=== PATIENT | female | born 1940 ===

== ENCOUNTER 2023-07-12 13:19 | Outpatient (CLI) | payer MEDICARE | END 2023-07-12 13:20 | disposition home or self-care (01) | LOC: RAD 13:19 | PROVIDERS: ATTEND Family Medicine | DX: M43.6 Torticollis (principal); M47.812 Spondylosis without myelopathy or radiculopathy, cervical region | CPT/HCPCS: 72040 ==

== ENCOUNTER 2025-02-19 11:02 | Outpatient (CLI) | payer MEDICARE, OTHER | END 2025-02-19 11:03 | disposition home or self-care (01) | LOC: RAD 11:02 | PROVIDERS: ATTEND Nurse Practitioner Family | DX: R00.0 Tachycardia, unspecified (principal); R16.0 Hepatomegaly, not elsewhere classified; J98.11 Atelectasis | CPT/HCPCS: 36415; 71046; 80053; 81001; 84439; 84443; 84481; 85025; 87086 ==